=== PATIENT | male | born 1970 | race American Indian/Alaskan Native ===

== ENCOUNTER 2018-03-28 15:04 | Emergency (ER) | payer OTHER, BC ==
[2018-03-28 15:04] VITALS: BMI 19.7
[2018-03-28 15:11] VITALS: TEMP 98.8
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
[2018-03-28 16:56] VITALS: BP 160/85; PULSE 78; RESP 16; O2SAT 98
--- NOTE | 2018-03-28 18:31 | RAD ---
Date of service: 03/28/2018 PROCEDURE: Cervical Spine Radiographs. HISTORY: Pain. COMPARISON: None available. FINDINGS: BONES: There is normal alignment of the cervical vertebral bodies. There is loss of normal cervical lordosis. Vertebral height is normal. Bone mineralization is normal. There is no acute fracture or traumatic anterior listhesis. The craniocervical junction is normal. The atlantoaxial joint normal. DISC SPACES: There is multilevel degenerative disc disease with anterior osteophytes, reduced disc heights and multilevel facet arthropathy, worse at C6-7. SOFT TISSUES: Normal. No prevertebral soft tissue swelling. OTHER FINDINGS: None. IMPRESSION: No acute fracture or traumatic anterior listhesis. Multilevel degenerative disc disease, worse at C6-7. Straightening of the cervical spine may be positional or related to muscle spasm.
== END 2018-03-28 16:58 | disposition home or self-care (01) ==
LOC: C.ER 15:04
DX: M62.838 Other muscle spasm (principal); V49.9XXA Car occupant (driver) (passenger) injured in unspecified traffic accident, initial encounter; E11.9 Type 2 diabetes mellitus without complications; E78.00 Pure hypercholesterolemia, unspecified; I10 Essential (primary) hypertension